=== PATIENT | female | born 1965 | race African-American/Black ===

== ENCOUNTER 2017-02-25 10:23 | Inpatient (IN) | payer MEDICAID ==
[~2017-02-25] VITALS: Ht 170.2 cm; Wt 137.0 kg
[2017-02-25] MEDS ORDERED: ASPIRIN 81 MG TABLET CHEW PO ONE (11:00)
[2017-02-25] MEDS ORDERED: SODIUM CHLORIDE FLUSH 10ML SYR IVF ONE (11:00)
[2017-02-25 11:10] LABS: HEMOGLOBIN 11.6 g/dL (11.7-16.4); WHITE BLOOD COUNT 6.4 x10^3/uL (3.4-10)
[2017-02-25 11:23] LABS: ASPARTATE AMINO TRANSFERASE 14 U/L (15-37); BLOOD UREA NITROGEN 16 mg/dL (7-18)
[2017-02-25 11:33] LABS: IS PT STATUS REG ER OR PRE ER? YES
[2017-02-25] MEDS ORDERED: ASPIRIN 81 MG TABLET CHEW ONE (12:13)
[2017-02-25] MEDS ORDERED: OMNIPAQUE 350 MG/ML, 150 ML BOTTLE ONE (13:21)
[2017-02-25] MEDS ORDERED: LOSA100T6 PO (14:10)
[2017-02-25] MEDS ORDERED: TRAM50TA2 PO (14:10)
[2017-02-25] MEDS ORDERED: OXYB5TAB7 PO (14:10)
[2017-02-25] MEDS ORDERED: OMEP-110 PO (14:10)
[2017-02-25] MEDS ORDERED: FERR325T5 PO (14:10)
[2017-02-25] MEDS ORDERED: DASA100T PO (14:10)
[2017-02-25] MEDS ORDERED: HYDR25TA6 PO (14:10)
[2017-02-25] MEDS ORDERED: METF850T2 PO (14:10)
[2017-02-25] MEDS ORDERED: CLON0.1T PO (14:10)
[2017-02-25] MEDS ORDERED: ALBUTEROL/IPRATROPIUM 2.5MG/0.5MG, 3 ML NPPB SCH (15:00)
[2017-02-25] MEDS ORDERED: SODIUM CHLORIDE FLUSH 10ML SYR IVF PRN (15:00)
[2017-02-25] MEDS ORDERED: methylPREDNISolone SOD SUCC 125 MG/2 ML IVP ONE (15:00)
[2017-02-25] MEDS ORDERED: methylPREDNISolone SOD SUCC 125 MG/2 ML ONE (15:00)
[2017-02-25] MEDS ORDERED: ALBUTEROL/IPRATROPIUM 2.5MG/0.5MG, 3 ML ONE (15:02)
[2017-02-25] MEDS ORDERED: ZOLPIDEM 5MG TABLET PO PRN (17:00)
[2017-02-25] MEDS ORDERED: DOCUSATE 100 MG CAPSULE PO PRN (17:00)
[2017-02-25] MEDS ORDERED: TRAZODONE 50MG TABLET PO PRN (17:00)
[2017-02-25] MEDS ORDERED: ONDANSETRON 2MG/ML, 2ML IVPush PRN (17:00)
[2017-02-25] MEDS ORDERED: ONDANSETRON ODT 4 MG PO PRN (17:00)
[2017-02-25] MEDS ORDERED: BISACODYL 10 MG SUPP PR PRN (17:00)
[2017-02-25] MEDS ORDERED: CAPTOPRIL 25 MG TABLET PO PRN (17:00)
[2017-02-25] MEDS ORDERED: hydrALAzine 20 MG/ML, 1ML IVPush PRN (17:00)
[2017-02-25] MEDS ORDERED: LABETALOL 5MG/ML, 20ML IVPush PRN (17:00)
[2017-02-25] MEDS: methylPREDNISolone SOD SUCC 125 MG/2 ML IVPush SCH ×2 (18:13→23:07)
[2017-02-25] MEDS: ENOXAPARIN 40 MG/0.4 ML SQ SCH (18:13)
[2017-02-25] MEDS: INSULIN ASPART 100 UNITS/ML, PEN SQ-INSULIN SCH ×2 (18:14→21:44)
[2017-02-25 18:24] VITALS: BP 127/85
[2017-02-25] MEDS: HYDROmorphone 2 MG/ML, 1ML IVPush PRN ×2 (19:43→23:26)
[2017-02-25] MEDS: OXYBUTYNIN CHLORIDE 5 MG TABLET PO SCH (19:45)
[2017-02-25] MEDS: FAMOTIDINE 20 MG TABLET PO SCH (19:45)
[2017-02-25] MEDS: metFORMIN 850 MG TABLET PO SCH (21:00)
[2017-02-25 21:10] VITALS: BP 124/82
[2017-02-26 01:35] VITALS: BP 122/75
[2017-02-26] MEDS: HYDROmorphone 2 MG/ML, 1ML IVPush PRN ×3 (03:58→17:32)
[2017-02-26] MEDS: methylPREDNISolone SOD SUCC 125 MG/2 ML IVPush SCH ×4 (04:12→22:48)
[2017-02-26 04:39] LABS: HEMATOCRIT 34.1 % (34.6-47.8); HEMOGLOBIN 11.3 g/dL (11.7-16.4); WHITE BLOOD COUNT 5.3 x10^3/uL (3.4-10)
[2017-02-26 04:50] LABS: BLOOD UREA NITROGEN 16 mg/dL (7-18)
[2017-02-26 07:06] VITALS: BP 141/83
[2017-02-26] MEDS: metFORMIN 850 MG TABLET PO SCH ×2 (09:00→19:21)
[2017-02-26] MEDS ORDERED: DASATINIB 100 MG PO SCH (09:00)
[2017-02-26] MEDS: INSULIN ASPART 100 UNITS/ML, PEN SQ-INSULIN SCH ×4 (10:12→20:31)
[2017-02-26] MEDS: OXYBUTYNIN CHLORIDE 5 MG TABLET PO SCH ×3 (10:22→20:32)
[2017-02-26] MEDS: LOSARTAN 50MG TABLET PO SCH (10:22)
[2017-02-26] MEDS: FAMOTIDINE 20 MG TABLET PO SCH ×2 (10:23→20:32)
[2017-02-26] MEDS: FERROUS SULFATE 325 MG TABLET PO SCH (10:23)
[2017-02-26] MEDS: HYDROCHLOROTHIAZIDE 25 MG TABLET PO SCH (10:23)
[2017-02-26] MEDS: OMEPRAZOLE 20 MG CAPSULE.DR PO SCH (10:24)
[2017-02-26 16:11] VITALS: BP 136/97
[2017-02-26] MEDS: ENOXAPARIN 40 MG/0.4 ML SQ SCH (17:06)
[2017-02-26 19:13] VITALS: BP 130/79
[2017-02-27 01:27] VITALS: BP 136/88
[2017-02-27 04:44] LABS: BLOOD UREA NITROGEN 20 mg/dL (7-18)
[2017-02-27 04:51] LABS: HEMATOCRIT 33.6 % (34.6-47.8); WHITE BLOOD COUNT 7.7 x10^3/uL (3.4-10)
[2017-02-27] MEDS: methylPREDNISolone SOD SUCC 125 MG/2 ML IVPush SCH (04:59)
[2017-02-27] MEDS: HYDROmorphone 2 MG/ML, 1ML IVPush PRN (05:42)
[2017-02-27 06:30] VITALS: BP 144/91
[2017-02-27] MEDS: INSULIN ASPART 100 UNITS/ML, PEN SQ-INSULIN SCH (08:31)
[2017-02-27] MEDS: metFORMIN 850 MG TABLET PO SCH (08:34)
[2017-02-27] MEDS: LOSARTAN 50MG TABLET PO SCH (08:34)
[2017-02-27] MEDS: FERROUS SULFATE 325 MG TABLET PO SCH (08:34)
[2017-02-27] MEDS: OXYBUTYNIN CHLORIDE 5 MG TABLET PO SCH (08:34)
[2017-02-27] MEDS: OMEPRAZOLE 20 MG CAPSULE.DR PO SCH (08:35)
[2017-02-27] MEDS: HYDROCHLOROTHIAZIDE 25 MG TABLET PO SCH (08:35)
[2017-02-27] MEDS: FAMOTIDINE 20 MG TABLET PO SCH (08:35)
== END 2017-02-27 12:00 | disposition home or self-care (01) | DRG 291 ==
LOC: ED 11:27 → EDIP 14:55 → 3NW 16:18 → DCLOUNGE 02-27 11:27
PROVIDERS: ADMIT Internal Medicine; ATTEND Internal Medicine
DX: I11.0 Hypertensive heart disease with heart failure (principal); J96.01 Acute respiratory failure with hypoxia; C95.90 Leukemia, unspecified not having achieved remission; J44.1 Chronic obstructive pulmonary disease with (acute) exacerbation; I50.9 Heart failure, unspecified; E11.9 Type 2 diabetes mellitus without complications; I10 Essential (primary) hypertension; Z90.49 Acquired absence of other specified parts of digestive tract; Z90.710 Acquired absence of both cervix and uterus; Z98.51 Tubal ligation status; Z88.5 Allergy status to narcotic agent; Z88.8 Allergy status to other drugs, medicaments and biological substances
CPT/HCPCS: 36415; 71275; 80048; 80053; 82962; 83036; 83735; 83880; 84100; 84439; 84443; 84484; 85025; 93005; 94640; 96374; J1170; J1650; J1815; J7620; Q9967; J2930

== ENCOUNTER 2017-11-04 10:57 | Emergency (ER) | payer MEDICAID ==
[~2017-11-04] VITALS: Ht 167.6 cm; Wt 124.0 kg
[~2017-11-04 10:57] MED LIST: CLON0.1T PO; DASA100T PO; FERR325T5 PO; HYDR25TA6 PO; LOSA100T6 PO; METF850T2 PO; OMEP-110 PO; OXYB5TAB7 PO; TRAM50TA2 PO
[2017-11-04] MEDS ORDERED: OXYcodone/APAP 5/325MG TABLET PO ONE (11:30)
[2017-11-04] MEDS ORDERED: SODIUM CHLORIDE 0.9% 1,000ML IVBOLUS ONE (11:30)
[2017-11-04] MEDS ORDERED: SODIUM CHLORIDE FLUSH 10ML SYR IVF ONE (11:30)
[2017-11-04] MEDS ORDERED: PLEASE ENTER HEIGHT AND WEIGHT MC SCH (11:30)
[2017-11-04 12:14] LABS: MEAN CORPUSCULAR HEMOGLOBIN 30.1 pg (27.0-34.8); MEAN CORPUSCULAR HGB CONC 33.7 g/dL (32.4-35.8); MEAN CORPUSCULAR VOLUME 89.3 fL (80-100); MEAN PLATELET VOLUME 9.3 fL (7.4-10.4); PLATELET COUNT 208 x10^3/uL (130-400); RED BLOOD COUNT 4.07 x10^6/uL (3.82-5.3); RED CELL DISTRIBUTION WIDTH 16.7 % (9.6-15.2)
[2017-11-04] MEDS ORDERED: HYDR-3240 PO (12:15)
[2017-11-04 12:22] LABS: ALANINE AMINOTRANSFERASE 22 U/L (12-78); ALBUMIN 3.3 g/dL (3.4-5.0); ANION GAP 7 mmol/L (5-15); CALCIUM 8.3 mg/dL (8.5-10.1); CHLORIDE 111 mmol/L (98-107); CREATININE 0.83 mg/dL (0.55-1.02)
[2017-11-04 12:26] LABS: ALKALINE PHOSPHATASE 189 U/L (45-117); BILIRUBIN,TOTAL 0.3 mg/dL (0.2-1.0); TOTAL PROTEIN 7.2 g/dL (6.4-8.2)
[2017-11-04 12:31] LABS: ACETONE, SERUM Small (20mg/dL) mg/dL (Negative)
[2017-11-04 12:37] LABS: TROPONIN I < 0.015 ng/mL (0.000-0.045)
[2017-11-04 12:53] LABS: MICROSCOPIC NOT IND
[2017-11-04 12:57] LABS: BASOPHILS # (AUTO) 0.03 x10^3/uL (0-0.1); BASOPHILS % (AUTO) 0 % (0-1); EOSINOPHILS # (AUTO) 0.22 x10^3/uL (0-0.4); EOSINOPHILS % (AUTO) 2 % (1-7); LYMPHOCYTES # (AUTO) 2.86 x10^3/uL (1-3.4); LYMPHOCYTES % (AUTO) 31 % (22-44); MD SCAN; MONOCYTES # (AUTO) 0.59 x10^3/uL (0.2-0.8); MONOCYTES % (AUTO) 7 % (2-9); NEUTROPHILS # (AUTO) 5.43 x10^3/uL (1.8-6.8); NEUTROPHILS % (AUTO) 60 % (42-75)
[2017-11-04] MEDS ORDERED: OXYcodone/APAP 5/325MG TABLET ONE (12:58)
[2017-11-04 13:01] LABS: CULTURE INDICATED? NO
[2017-11-04 14:44] VITALS: BP 133/88
== END 2017-11-04 14:49 | disposition home or self-care (01) ==
LOC: ED 14:00
DX: R42 Dizziness and giddiness (principal); R53.1 Weakness; I10 Essential (primary) hypertension; E11.9 Type 2 diabetes mellitus without complications; J44.9 Chronic obstructive pulmonary disease, unspecified
CPT/HCPCS: 36415; 71045; 80053; 81003; 82010; 83605; 83880; 84484; 85025; 93005; 99285

== ENCOUNTER 2017-11-14 05:51 | Emergency (ER) | payer MEDICAID ==
[~2017-11-14] VITALS: Ht 167.6 cm; Wt 125.1 kg
[~2017-11-14 05:51] MED LIST changes: +HYDR-3240 PO
[2017-11-14 05:56] VITALS: BP 151/81
== END 2017-11-14 08:20 | disposition home or self-care (01) ==
LOC: ED 06:23
DX: S90.121A Contusion of right lesser toe(s) without damage to nail, initial encounter (principal); E11.9 Type 2 diabetes mellitus without complications; I10 Essential (primary) hypertension; J44.9 Chronic obstructive pulmonary disease, unspecified; X58.XXXA Exposure to other specified factors, initial encounter; Y93.89 Activity, other specified; Y92.89 Other specified places as the place of occurrence of the external cause; Y99.8 Other external cause status
CPT/HCPCS: 99284

== ENCOUNTER 2018-04-06 08:38 | Emergency (ER) | payer SELFPAY ==
[~2018-04-06] VITALS: Ht 167.6 cm; Wt 140.0 kg
[~2018-04-06 08:38] MED LIST changes: -LOSA100T6 PO; +LOSA100T7 PO; +METF850T10 PO; -METF850T2 PO
[2018-04-06] MEDS ORDERED: HYDR12.53 PO (08:59)
[2018-04-06] MEDS ORDERED: ALPR1TAB2 PO (09:00)
[2018-04-06] MEDS ORDERED: KETOROLAC 30 MG/1 ML IM ONE (09:30)
[2018-04-06] MEDS ORDERED: KETOROLAC 30 MG/1 ML ONE (10:06)
[2018-04-06] MEDS ORDERED: HYDROcodone/APAP 5/325 TABLET ONE (10:24)
[2018-04-06 10:27] VITALS: BP 139/76
[2018-04-06] MEDS ORDERED: HYDROcodone/APAP 5/325 TABLET PO ONE (10:30)
== END 2018-04-06 11:45 | disposition home or self-care (01) ==
LOC: ED 11:23
DX: M16.11 Unilateral primary osteoarthritis, right hip (principal); M51.36 Other intervertebral disc degeneration, lumbar region; J44.9 Chronic obstructive pulmonary disease, unspecified; E11.9 Type 2 diabetes mellitus without complications; I10 Essential (primary) hypertension; F17.200 Nicotine dependence, unspecified, uncomplicated
CPT/HCPCS: 72110; 99284

== ENCOUNTER 2018-04-08 12:31 | Emergency (ER) | payer MEDICAID ==
[~2018-04-08] VITALS: Ht 167.6 cm; Wt 139.0 kg
[~2018-04-08 12:31] MED LIST changes: +ALPR1TAB2 PO; +HYDR12.53 PO
[2018-04-08 13:11] LABS: MEAN CORPUSCULAR HEMOGLOBIN 28.6 pg (27.0-34.8); MEAN CORPUSCULAR HGB CONC 33.2 g/dL (32.4-35.8); MEAN CORPUSCULAR VOLUME 86.3 fL (80-100); MEAN PLATELET VOLUME 9.2 fL (7.4-10.4); PLATELET COUNT 250 x10^3/uL (130-400); RED BLOOD COUNT 4.73 x10^6/uL (3.82-5.3); RED CELL DISTRIBUTION WIDTH 17.6 % (9.6-15.2)
[2018-04-08 13:23] LABS: ALBUMIN 3.6 g/dL (3.4-5.0); ANION GAP 9 mmol/L (5-15); CALCIUM 8.8 mg/dL (8.5-10.1); CHLORIDE 103 mmol/L (98-107)
[2018-04-08 13:27] LABS: ALANINE AMINOTRANSFERASE 22 U/L (12-78); ALKALINE PHOSPHATASE 198 U/L (45-117); BILIRUBIN,TOTAL 0.4 mg/dL (0.2-1.0); CREATININE 0.91 mg/dL (0.55-1.02); TOTAL PROTEIN 8.5 g/dL (6.4-8.2)
[2018-04-08 13:38] LABS: BASOPHILS # (AUTO) 0.01 x10^3/uL (0-0.1); BASOPHILS % (AUTO) 0 % (0-1); EOSINOPHILS # (AUTO) 0.15 x10^3/uL (0-0.4); EOSINOPHILS % (AUTO) 1 % (1-7); LYMPHOCYTES # (AUTO) 2.42 x10^3/uL (1-3.4); LYMPHOCYTES % (AUTO) 15 % (22-44); MONOCYTES % (AUTO) 4 % (2-9); NEUTROPHILS # (AUTO) 13.03 x10^3/uL (1.8-6.8); NEUTROPHILS % (AUTO) 80 % (42-75)
[2018-04-08 13:39] LABS: <PLATELET ESTIMATE> ADEQUATE; <RBC MORPHOLOGY> NORMAL; GIANT PLATELETS 1+; MD MORPH REVIEW ONLY
[2018-04-08 14:25] LABS: MICROSCOPIC NOT IND
[2018-04-08 14:42] LABS: CULTURE INDICATED? NO
[2018-04-08] MEDS ORDERED: OMNIPAQUE 350 MG/ML, 150 ML BOTTLE ONE (16:44)
[2018-04-08 17:38] VITALS: BP 135/70
[2018-04-08] MEDS ORDERED: ALBU8.5H8 INH (17:53)
[2018-04-08] MEDS ORDERED: CHOL100011 PO (17:53)
[2018-04-08] MEDS ORDERED: ATOR-2 PO (17:53)
[2018-04-08] MEDS ORDERED: NICO2GUM5 PO (17:53)
[2018-04-08] MEDS ORDERED: GABA600T2 PO (17:53)
[2018-04-08] MEDS ORDERED: DULO30CA2 PO (17:53)
[2018-04-08] MEDS ORDERED: FURO20TA3 PO (17:53)
[2018-04-08] MEDS ORDERED: NYST1000 PO (17:53)
[2018-04-08] MEDS ORDERED: RIVA20TA PO (17:53)
[2018-04-08] MEDS ORDERED: ARIP2TAB2 PO (17:53)
[2018-04-08] MEDS ORDERED: DIGO250T PO (17:53)
[2018-04-08] MEDS ORDERED: LEVO25TA4 PO (17:53)
[2018-04-08] MEDS ORDERED: OXYC10TA6 PO (17:53)
[2018-04-08] MEDS ORDERED: BENZ1TAB61 PO (17:53)
[2018-04-08] MEDS ORDERED: CALC-545 PO (17:53)
[2018-04-08] MEDS ORDERED: ONDA4TAB13 SL (17:53)
[2018-04-08] MEDS ORDERED: POTA99TA24 PO (17:53)
[2018-04-08] MEDS ORDERED: TIOT18CA INH (17:53)
[2018-04-08] MEDS ORDERED: LUBI8CAP4 PO (17:53)
[2018-04-08] MEDS ORDERED: OMEG-14 PO (17:53)
[2018-04-08] MEDS ORDERED: CARV6.252 PO (17:53)
[2018-04-08] MEDS ORDERED: CYAN1TAB22 PO (17:53)
== END 2018-04-08 17:40 | disposition home or self-care (01) ==
LOC: ED 14:22
DX: R10.31 Right lower quadrant pain (principal); R10.30 Lower abdominal pain, unspecified
CPT/HCPCS: 36415; 74177; 80053; 81003; 83690; 85025; 99285; Q9967